=== PATIENT | female | born 1990 | race Caucasian/White ===

== ENCOUNTER 2024-07-09 18:49 | Emergency (ER) | payer SELFPAY ==
[~2024-07-09] VITALS: Ht 167.6 cm; Wt 67.1 kg
[2024-07-09 19:11] VITALS: PULSE 118; RESP 20; TEMP 98.4
[2024-07-09] MEDS ORDERED: ONDANSETRON HCL INJ 2MG/ML 2ML 2 MG/ML VIAL IV PRN (19:30)
[2024-07-09 19:31] LABS: BASOPHILS % 0.4 % (0.0-1.0); EOSINOPHILS # (AUTO) 0.1 (0.0-0.4); EOSINOPHILS % 0.7 % (0.0-6.0); HEMATOCRIT 42.7 % (34.2-44.1); HEMOGLOBIN 14.4 g/dL (12.0-16.0); LYMPHOCYTES # (AUTO) 2.5 (1.0-3.2); LYMPHOCYTES % 29.7 % (18.0-39.1); MEAN CORPUSCULAR HEMOGLOBIN 31.7 pg (28-32); MEAN CORPUSCULAR HGB CONC 33.7 g/dL (31-35); MEAN CORPUSCULAR VOLUME 94.1 fL (81-99); MONOCYTES # (AUTO) 0.5 (0.2-0.8); MONOCYTES % 5.3 % (4.4-11.3); NEUTROPHILS # (AUTO) 5.4 (2.1-6.9); NEUTROPHILS % 63.7 % (38.7-80.0); PLATELET COUNT 304 x10e3/uL (140-360); RED BLOOD COUNT 4.54 x10e6/uL (3.6-5.1); WHITE BLOOD COUNT 8.54 x10e3/uL (4.8-10.8)
[2024-07-09] MEDS ORDERED: OCTREOTIDE ACETATE 500 MCG in SODIUM CHLORIDE 0.9% 250ML 249 ML IV STA (19:33)
[2024-07-09 19:34] LABS: BILIRUBIN,URINE NEGATIVE (NEGATIVE); CLARITY,URINE CLEAR (CLEAR); COLOR,URINE YELLOW (YELLOW); GLUCOSE, URINE NEGATIVE (NEGATIVE); KETONES,URINE NEGATIVE (NEGATIVE); LEUKOCYTE ESTERASE ,URINE NEGATIVE (NEGATIVE); NITRITE,URINE NEGATIVE (NEGATIVE); PH,URINE 7.5 (5 - 7); PROTEIN,URINE DIPSTICK NEGATIVE (NEGATIVE); URINE UROBILINOGEN 0.2 mg/dL (0.2 - 1)
[2024-07-09] MEDS ORDERED: OCTREOTIDE ACETATE 0.05 MG/ML AMP IV ONE (19:40)
[2024-07-09 19:44] LABS: ALBUMIN/GLOBULIN RATIO 1.4 (0.8-2.0); ANION GAP 14.8 mmol/L (8-16); BILIRUBIN,TOTAL 0.8 mg/dL (0.2-1.2); CREATININE, SERUM 0.82 mg/dL (0.57-1.11); POTASSIUM 3.8 mmol/L (3.5-5.1); TOTAL PROTEIN 8.7 g/dL (6.5-8.1)
[2024-07-09 19:46] LABS: CALCIUM 13.2 mg/dL (8.4-10.2)
[2024-07-09] MEDS ORDERED: HALOPERIDOL LACTATE 5 MG/ML VIAL ONE (19:51)
[2024-07-09 19:53] LABS: BACTERIA,URINE MODERATE /HPF; EPITHELIAL CELLS,URINE MODERATE /LPF; WBC,URINE (MAN) 0-5 /HPF (0-5)
[2024-07-09] MEDS: SODIUM CHLORIDE 0.9% 1000ML 1,000 ML IV STA (19:55)
[2024-07-09] MEDS: FENTANYL CITRATE/PF 100MCG/2 ML INJ IV PRN (19:56)
[2024-07-09] MEDS: HALOPERIDOL LACTATE 5 MG/ML VIAL IV ONE ×2 (19:56→21:46)
[2024-07-09] MEDS ORDERED: IOPAMIDOL 370 MG/ML 100 ML INFUS..BTL INJ ONE (20:12)
[2024-07-09] MEDS ORDERED: HALOPERIDOL1 MG PO (21:34)
[2024-07-09] MEDS: FENTANYL CITRATE/PF 100MCG/2 ML INJ IV STA (21:45)
[2024-07-09 21:47] VITALS: BP 149/94; O2SAT 100
== END 2024-07-09 21:49 | disposition home or self-care (01) ==
LOC: ER 18:54
DX: R10.13 Epigastric pain (principal); R10.33 Periumbilical pain; R11.2 Nausea with vomiting, unspecified; Z87.442 Personal history of urinary calculi
CPT/HCPCS: 36415; 71260; 74177; 80053; 81001; 83690; 84702; 85025; 99284; J1630; J2470; J3010; J7030; Q9967